=== PATIENT | female | born 1950 | race Caucasian/White ===

== ENCOUNTER 2020-09-02 16:31 | Emergency (ER) | payer MEDICARE, BC, SELFPAY ==
[2020-09-02 16:45] VITALS: BP 132/86; PULSE 84; RESP 21; TEMP 37; O2SAT 96; BMI 27.6
--- NOTE | 2020-09-02 16:59 | HMH.EDUTC ---
[facility] [place] Clinical Impression: Asthma exacerbation Qualifiers: Asthma severity: unspecified severity Asthma persistence: unspecified Qualified Code(s): J45.901 - Unspecified asthma with (acute) exacerbation Disposition: Home, Self-Care Condition on Discharge: Good Instructions: Asthma -- Adult, DI for Asthma -- Adult, Azithromycin Additional Instructions: ? Start antibiotic today. Be sure to complete entire prescription even if feeling better ? Monitor temp. Tylenol every 4 hours as needed and / or ibuprofen every 6 hours as needed ( As long as your primary care physician has told you that it ok to take both. For fever/aches/pains ER if no less than 101 despite Tylenol or Motrin ? Humidifier/vaporizer or hot steamy shower ? Inhaler every 4-6 hours as needed like we discussed. If unsure how to use it, ask pharmacist to demonstrate how. Should help open airways and improve cough, wheezing, and shortness of breath ? Mucinex during the day for your cough and cough suppressant only at night. Be sure to drink lots of water. Insurance may not cover a prescriptions for mucinex. Might be cheaper to get 400mg tablets and take 2 tablet in the morning, mid-day and evening with lots of water. *Start steroid tomorrow. Helps with inflammation therefore, cough and wheezing. Follow directions on the package. Reviewed side effects. Patient reports taking them before. Follow up IMMEDIATELY for new or worsening of symptoms OR no noticeable improvement over the next 48-72 hours. 911 immediately for any life threatening symptoms such as chest pain or difficulty breathing Prescriptions: predniSONE [Prednisone 20mg Tab] 20 mg PO BID 5 Days #10 tab Transmission Status: Received by [id number] Azithromycin [Z-Marlo 250mg Tab] 250 mg PO DIRECTED #6 tab Transmission Status: Received by [id number] Referrals: PCP,No [Primary Care Provider] - As needed Time of Disposition: 17:45 Medical Decision Making - Mike Inquiry Pt receiving controlled substance: No Mike was queried for this patient: No Vital Signs: 09/02/20 16:45 Temperature 98.6 F Temperature Source Oral Pulse Rate [Right Brachial] 84 Respiratory Rate 21 Blood Pressure [Right Arm] 132/86 Blood Pressure Mean [Right Arm] 101 Blood Pressure Source [Right Arm] Automatic Cuff Blood Pressure Position [Right Arm] Sitting 02 Sat by Pulse Oximetry 96 Oxygen Delivery Method Room Air Orders (Tests/Meds): ED MEDICATIONS Discontinued Medications Generic Name Dose Route Start Last Admin Trade Name Celena PRN Reason Stop Dose Admin Albuterol/Ipratropium 3 ml 09/02/20 17:01 09/02/20 17:09 Ipratropium/Albuterol 3 Ml Neb IH 09/02/20 17:02 3 ml ONCE ONE Administration Methylprednisolone Sodium Succinate 125 mg 09/02/20 17:01 09/02/20 17:09 Methylprednisolone Sod Succ 125mg Vial IM 09/02/20 17:02 125 mg ONCE ONE Administration Medical Decision Narrative: Patient reports history of asthma states that she is here from [place] helping to care for her mother and her asthma started acting up Denies fever, denies productive cough, States that she felt like she needed some steriods to help with her asthma Discussed CXR and patient declined at this time. Will give Duo neb, and solu medrol and reassess Wheezing improved after neb treatment Patient reports that she has taken azithromycin and steriods in the past without complications or reactions [facility] [place] - General Stated complaint: Asthma,chest congested Time Seen by Provider: 09/02/20 17:00 Mode of Arrival: Ambulatory Source of Information: Patient Limitations: No Limitations Description of Symptoms (Recalled from Triage Doc. by RN): PATIENT C/O CHEST TIGHTNESS, SOA AND COUGH X 1 WEEK HEENT Symptoms (Recalled from RN notes): No Resp Symptoms (Recalled from RN notes): Yes Skin Symptoms (Recalled from RN notes): No MS Symptoms (Recalled from RN notes): No Functional Status (Recall
[2020-09-02 17:58] VITALS: BP 132/86; PULSE 84; RESP 21; TEMP 37; O2SAT 96
== END 2020-09-02 18:00 | disposition home or self-care (01) ==
PROVIDERS: Emergency Provider Nurse Practitioner
DX: J45.901 Unspecified asthma with (acute) exacerbation (principal)
CPT/HCPCS: G0463; 96372; 99202